=== PATIENT | female | born 1960 | race Two or more races ===

== ENCOUNTER 2021-09-10 08:23 | Outpatient (REF) | payer OTHER, SELFPAY ==
[2021-09-10 10:27] LABS: Basophils Absolute Auto 0.1 X10*3/uL (0.0-0.2); Basophils Percent Auto 0.5 % (0-2); Eosinophils Absolute Auto 0.2 X10*3/uL (0.0-0.4); Eosinophils Percent Auto 1.4 % (0-4); Hematocrit 42.8 % (37.0-47.0); Hemoglobin 14.3 g/dl (12.0-16.0); Imm Gran Abs Auto 0.05 X10*3/uL (0.00-0.03); Imm Gran Pct Auto 0.4 % (0.0-0.4); Lymphocytes Absolute Auto 2.4 X10*3/uL (1.2-4.9); Lymphocytes Percent Auto 20.2 % (20-40); MANUAL DIFF FLAG NO; Mean Corpuscular HGB Conc 33.4 g/dl (31.0-35.0); Mean Corpuscular Hemoglobin 29.8 pg (27.0-33.0); Mean Corpuscular Volume 89.2 fL (80.0-98.0); Mean Platelet Volume 9.8 fL (9.4-12.3); Monocytes Absolute Auto 0.7 X10*3/uL (0.1-1.2); Monocytes Percent Auto 5.4 % (2-11); Neutrophils Absolute Auto 8.6 x10*3/uL (2.0-8.3); Neutrophils Percent Auto 72.1 % (45-73); Platelet Count 453 X10*3/uL (160-400); Red Cell Distribution Width 12.3 % (11.0-16.0)
[2021-09-10 10:58] LABS: Alanine Aminotransferase 46 U/L (0-31); Albumin Level 4.2 g/dL (3.5-5.0); Alkaline Phosphatase 118 U/L (39-117); Anion Gap 14 (12-20); Aspartate Amino Transferase 26 U/L (5-31); Bilirubin Total 0.8 mg/dL (0.0-1.0); Blood Urea Nitrogen 13 mg/dL (9-16); Calcium 9.8 mg/dL (8.4-10.2); Carbon Dioxide 27 mmol/L (22-29); Chloride 108 mmol/L (96-108); Cholesterol 197 mg/dL; Estimated Glomerular Filt Rate > 60; Glucose Fasting 109 mg/dL (60-99); HDL Cholesterol 45 mg/dL; LDL Cholesterol Calculated 122 mg/dl; Potassium 4.6 mmol/L (3.3-5.1); Sodium 144 mmol/L (135-145); Total Protein 6.9 g/dL (6.5-8.0); Triglycerides 150 mg/dL
[2021-09-10 11:19] LABS: HBc Num1 0.07 S/CO (0.00-0.79); Hepatitis B Core Antibody Nonreactive (Nonreactive); Thyroid Stimulating Hormone 1.25 uIU/mL (0.32-4.0); ~HepC Num1 0.19 S/CO (0.00-0.79); ~Hepatitis C Antibody Nonreactive (Nonreactive)
[2021-09-10 11:23] LABS: HBsAGNum1 0.17 S/CO (0.00-0.99); Hepatitis B Surface Antigen Negative (Negative); ~Hepatitis A Antibody IgM Nonreactive (Nonreactive); ~Hepatitis B Surface Antibody REACTIVE (Nonreactive)
== END 2021-09-10 08:24 | disposition home or self-care (01) ==
LOC: HO.10HDL 08:23
PROVIDERS: Visit Provider Internal Medicine
DX: Z00.01 Encounter for general adult medical examination with abnormal findings (principal); F32.9 Major depressive disorder, single episode, unspecified; L40.8 Other psoriasis; R74.01 Elevation of levels of liver transaminase levels
CPT/HCPCS: 36415; 80053; 80061; 84443; 85025; 86704; 86706; 86709; 86803; 87340

== ENCOUNTER 2021-09-25 | Outpatient (REF) | payer OTHER, SELFPAY ==
--- NOTE | ~2021-09-25 | MM_ITS ---
EXAMINATION: MM SCREENING DIGITAL BREAST TOMOSYNTHESIS, BILATERAL CLINICAL INFORMATION: Screening. Asymptomatic. The lifetime risk of breast cancer based on the Tyrer-Cuzick Model is 5.1%. COMPARISON: Mammography: September 07, 2018 and November 08, 2009 TECHNIQUE: Digital breast tomosynthesis is performed in both the craniocaudal and mediolateral oblique views along with computer-aided detection (CAD). Synthesized 2D images are generated from the tomosynthesis. FINDINGS: There are scattered areas of fibroglandular density (ACR BI-RADS breast composition Category b). There are no significant masses, abnormal calcifications, or other abnormalities. MM/MM tomosynthesis screening BI IMPRESSION: There are no significant changes from prior study. ASSESSMENT: BI-RADS 1: Negative RECOMMENDATION: Routine annual mammography screening. This patient's information was entered into a reminder system with a target due date for their next mammogram.
== END 2021-09-25 14:32 ==
LOC: HO.MAMMO
PROVIDERS: PCP Internal Medicine; Visit Provider Internal Medicine
DX: Z12.31 Encounter for screening mammogram for malignant neoplasm of breast (principal)
CPT/HCPCS: 77063; 77067

== ENCOUNTER 2022-03-24 12:32 | Outpatient (REF) | payer OTHER, SELFPAY ==
--- NOTE | ~2022-03-24 | XR_ITS ---
EXAMINATION: XR HAND, RIGHT CLINICAL INFORMATION: Pain. COMPARISON: None TECHNIQUE: PA, lateral, and oblique views of the right hand. FINDINGS: The bones and soft tissues are normal. No fracture. Alignment is anatomic. Joint spaces are maintained. No erosions or soft tissue calcifications. XR/XR hand RT min 3V IMPRESSION: Unremarkable right hand exam
== END 2022-03-24 12:33 | disposition home or self-care (01) ==
LOC: HO.HOSX 12:32
PROVIDERS: Visit Provider Physician Assistant
DX: M79.641 Pain in right hand (principal); M67.431 Ganglion, right wrist
CPT/HCPCS: 73130; 99202

== ENCOUNTER 2022-04-06 16:19 | Outpatient (REF) | payer OTHER, SELFPAY ==
--- NOTE | ~2022-04-06 | MR_ITS ---
EXAMINATION: MR WRIST WITHOUT AND WITH CONTRAST, RIGHT CLINICAL INFORMATION: Ganglion on right wrist. COMPARISON: X-ray of the right hand February 2022. TECHNIQUE: MRI of the right wrist is performed before and after contrast. Contrast dose 7.5 mL of Gadavist given intravenously. A skin marker was placed in the area of presumed palpable abnormality along the volar aspect of the wrist. FINDINGS: There is a lipomatous mass juxtaposed between the flexor carpi ulnaris tendon and the 4th and 5th flexor digitorum profundus tendons. The mass begins proximal to the ulnocarpal joint and extends just distal to it. See sagittal image 10 series 4. The mass also abuts or nearly abuts the ulnar nerve and artery. The signal characteristics of the mass are identical to that of the lipomatous subcutaneous soft tissues. There is no enhancement. The mass measures up to 13 mm transverse up to 6 mm AP and 22 mm craniocaudal. Triangular Fibrocartilage Complex: There is a small central 1 mm defect at the level of the radial attachment of the triangular fibrocartilage. Intraosseous ligaments normal. Bone/Cartilage: Small ganglion cyst versus synovial recess measuring 2 mm adjacent to the radial aspect of the triscaphoid joint. Minimal subchondral cystic change in of the lunate deep to the cartilage at the ulnocarpal articulation. Cartilage appears grossly intact. Subcutaneous Soft Tissues: Normal. Remaining neurovascular structures unremarkable. MR/MR wrist RT wo/w con IMPRESSION: Lipomatous mass volar ulnar aspect of the wrist centered at the level of the ulnocarpal articulation. The mass most likely reflects a lipoma. However, Clinical factors are necessary to exclude the remote possibility of malignancy. Small central defect/tear of the triangular fibrocartilage. Focal arthrosis of the ulnocarpal articulation. Small synovial recess or ganglion cyst abutting the radial aspect of the triscaphoid joint.
== END 2022-04-06 16:20 | disposition home or self-care (01) ==
LOC: HO.MRI 16:19
PROVIDERS: Visit Provider Physician Assistant
DX: M67.431 Ganglion, right wrist (principal)
CPT/HCPCS: 73223; A9585

== ENCOUNTER 2022-07-02 11:45 | Outpatient (REF) | payer OTHER, SELFPAY ==
--- NOTE | 2022-07-02 09:30 | EMG_ITS ---
Right median and ulnar motor and sensory studies were performed. Right radial and sensory study was performed and paraspinal muscles were tested. IMPRESSION: Mild to moderate right median neuropathy across carpal tunnel. MD NIELS Nesbitt/AJ / [id number]
== END 2022-07-02 11:46 | disposition home or self-care (01) ==
LOC: HO.NEURO 11:45
PROVIDERS: Visit Provider Physician Assistant
DX: R20.0 Anesthesia of skin (principal); R20.2 Paresthesia of skin
CPT/HCPCS: 95886; 95909

== ENCOUNTER 2022-09-29 12:48 | Outpatient (REF) | payer OTHER, SELFPAY ==
--- NOTE | ~2022-09-29 | MM_ITS ---
EXAMINATION: MM SCREENING DIGITAL BREAST TOMOSYNTHESIS, BILATERAL CLINICAL INFORMATION: Screening. Asymptomatic. The lifetime risk of breast cancer based on the Tyrer-Cuzick Model is 5%. COMPARISON: Mammography: 09/25/2021; outside mammography 09/07/2018 and 11/08/2009 ([facility] [place]) TECHNIQUE: Digital breast tomosynthesis is performed in both the craniocaudal and mediolateral oblique views along with computer-aided detection (CAD). Synthesized 2D images are generated from the tomosynthesis. FINDINGS: There are scattered areas of fibroglandular density (ACR BI-RADS breast composition Category b). There are no significant masses, abnormal calcifications, or other abnormalities. Parenchymal pattern is similar to prior studies. There is no developing density or architectural abnormality. The axilla and skin contours are unremarkable. No significant changes. MM/MM tomosynthesis screening BI IMPRESSION: No mammographic evidence of malignancy. ASSESSMENT: BI-RADS 1: Negative RECOMMENDATION: Routine annual mammography screening. This patient's information was entered into a reminder system with a target due date for their next mammogram.
== END 2022-09-29 12:49 | disposition home or self-care (01) ==
LOC: HO.MAMMO 12:48
PROVIDERS: PCP Internal Medicine; Visit Provider Internal Medicine
DX: Z12.31 Encounter for screening mammogram for malignant neoplasm of breast (principal)
CPT/HCPCS: 77063; 77067

== ENCOUNTER 2023-10-05 08:36 | Outpatient (REF) | payer OTHER, SELFPAY | END 2023-10-05 08:37 | disposition home or self-care (01) | LOC: HO.MAMMO 08:36 | PROVIDERS: PCP Internal Medicine; Visit Provider Internal Medicine | DX: Z12.31 Encounter for screening mammogram for malignant neoplasm of breast (principal) | CPT/HCPCS: 77063; 77067 ==

== ENCOUNTER → 2023-10-05 08:45 | Outpatient (BNV) | payer OTHER, SELFPAY | PROVIDERS: PCP Internal Medicine; Visit Provider Radiology Diagnostic Radiology | DX: Z12.31 Encounter for screening mammogram for malignant neoplasm of breast (principal) | CPT/HCPCS: 77063; 77067 ==

== ENCOUNTER 2024-12-01 16:12 | Outpatient (REF) | payer OTHER, SELFPAY ==
--- OUTSIDE RECORDS SUMMARY | 2024-12-01 17:00 | XMS_ITS | Clinical Summary ---
Author Organization [employer] Address [address] [place] [address] [address] [place] [address] Care Team Providers Care Manager Of Employee Relations Name Role Phone Unavailable Primary Care Provider Unavailabl e Allergies No known active allergies Medications No known medications Social History Tobacco Use Types Packs/Day Years Used Date Smoking Tobacco: Never Passive Smoke Exposure: Never Smokeless Tobacco: Never Tobacco Cessation:Counseling Given: Not Answered Alcohol Use Standard Drinks/Week Comments Never 0 (1 standard drink = 0.6 oz pur e alcohol) Comments Unknown Sex and Gender Information Value Date Recorded Sex Assigned at Female 06/29/2022 10:22 AM EDT Legal Sex Female 10:22 AM EDT Gender Identity Female 06/29/2022 10:22 AM EDT Sexual Orientation Choose not to disclose 2021 10:22 AM EDT Last Filed Vital Signs Vital Sign Reading Time Taken Comments Blood Pressure 118/74 09/04/2022 9:08 AM EST Pulse 68 09/04/2022 9:08 AM EST Temperature - - Respiratory Rate - - Oxygen Saturation - - Inhaled Oxygen Concentration - - Weight - - Height - - Body Mass Index - - Plan of Treatment Health Maintenance Due Date Last Done Comments CT Colonography 1962 Colonoscopy 1962 Colorectal Cancer Screening 1962 Dental X-Ray: Full Mouth 1962 Depression Screening 1962 FIT DNA/Cologuard 1962 FIT 1962 FOBT 1962 HIV Screening 1962 Lipid Panel 1962 SDOH Screening 1962 Sigmoidoscopy 1962 Alcohol/Substance Use Screening 1974 Hepatitis C Screening 1980 Pap Smear 1983 Cervical Cancer Screening 1992 HPV/Cotest 1992 Mammogram 2002 Pneumococcal Vaccine: 50+ Years (2 of 2 - PCV) 2012 08/20/2011 Zoster Vaccines (1 of 2) 2012 DTaP/Tdap/Td Vaccines (2 - Td or Tdap) 10/19/2022 10/19/2012 Dental Oral Exam 03/05/2023 09/04/2022 Dental Prophylaxis 03/05/2023 09/04/2022 Tobacco Screening 09/04/2023 09/04/2022 Dental X-Ray: Bitewings 09/05/2023 09/04/2022 COVID-19 Vaccine ( season) 2024 Influenza Vaccine (#1) 2024 7, 09/02/2015, 07/10/2014, Additional history exists RSV Patients and Patients Aged 60 years or older (1 - 1-dose 75+ series) 2037 Hepatitis B Vaccines Completed 01/25/2014, 09/25/2013, 07/12/2013 HIB Vaccines Aged Out No longer eligi ble based on patient's age to complete this topic HPV Vaccines Aged Out No longer eligi ble based on patient's age to complete this topic Hepatitis A Vaccines Aged Out No long er eligible based on patient's age to complete this topic IPV Vaccines Aged Out No longer eligi ble based on patient's age to complete this topic Meningococcal Vaccine Aged Out No dayanara adam eligible based on patient's age to complete this topic RSV under 20 months Aged Out No longe r eligible based on patient's age to complete this topic Rotavirus Vaccines Aged Out No longer eligible based on patient's age to complete this topic Procedures Procedure Name Priority Date/Time Associated Diagnosis Comments PERIODIC ORAL EVALUATION - ESTABLISHED PATIENT Routine 09/04/2022 3:00 PM EST PROPHYLAXIS - ADULT Routine 09/04/2022 9 :00 AM EST BITEWINGS - 4 RADIOGRAPHIC IMAGES Routine 09/04/2022 9:00 AM EST from Last 3 Months or Most Recently Relevant to Health Maintenance Insurance [facility]
--- OUTSIDE RECORDS SUMMARY | 2024-12-01 17:01 | XMS_ITS | Encounter Summary ---
Author Organization [employer] Address [address] [place] [address] [address] [place] [address] Care Team Providers Care Hog Cooler Name Role Phone Unavailable Primary Care Provider Unavailabl e Encounter Details Date Type Department Care Team (Latest Contact Info) Description 04/17/2019 Abstract [facility]VERSION[facility] Dental, Provider, DDS Social History Tobacco Use Types Packs/Day Years Used Date Smoking Tobacco: Never Assessed Comments Unknown Sex and Gender Information Value Date Recorded Sex Assigned at Female 06/29/2022 10:22 AM EDT Legal Sex Female 10:22 AM EDT Gender Identity Female 06/29/2022 10:22 AM EDT Sexual Orientation Choose not to disclose 2021 10:22 AM EDT documented as of this encounter Plan of Treatment Not on file documented as of this encounter Visit Diagnoses Not on filedocumented in this encounter
--- OUTSIDE RECORDS SUMMARY | 2024-12-01 17:01 | XMS_ITS | Encounter Summary ---
Author Organization [employer] Address [address] [place] [address] [address] [place] [address] Care Team Providers Care Softlines Supervisor Name Role Phone Unavailable Primary Care Provider Unavailabl e Reason for Visit * Reason Onset Date Comments returning call 03/25/2023 Encounter Details Date Type Department Care Team (Late st Contact Info) Description 03/25/2023 Telephone [facility] [address] [place] [address] Chandrakant Bonner DDS [address] [place] [address] returning call Social History Tobacco Use Types Packs/Day Years Used Date Smoking Tobacco: Never Passive Smoke Exposure: Never Smokeless Tobacco: Never Alcohol Use Standard Drinks/Week Comments Never 0 (1 standard drink = 0.6 oz pur e alcohol) Comments Unknown Sex and Gender Information Value Date Recorded Sex Assigned at Female 06/29/2022 10:22 AM EDT Legal Sex Female 10:22 AM EDT Gender Identity Female 06/29/2022 10:22 AM EDT Sexual Orientation Choose not to disclose 2021 10:22 AM EDT documented as of this encounter Miscellaneous Notes * Telephone Encounter - Sarah Doe - 03/25/2023 12:39 PM EDT Patient states she missed a call from [facility] dental. Pls return call to patient documented in this encounter Plan of Treatment Not on file documented as of this encounter Visit Diagnoses Not on filedocumented in this encounter
== END 2024-12-01 16:13 | disposition home or self-care (01) ==
LOC: HO.MAMMO 16:12
PROVIDERS: PCP Internal Medicine; Visit Provider Internal Medicine
DX: Z12.31 Encounter for screening mammogram for malignant neoplasm of breast (principal)
CPT/HCPCS: 77063; 77067

== ENCOUNTER → 2024-12-01 16:30 | Outpatient (BNV) | payer OTHER, SELFPAY | PROVIDERS: PCP Internal Medicine; Visit Provider Internal Medicine | DX: Z12.31 Encounter for screening mammogram for malignant neoplasm of breast (principal) | CPT/HCPCS: 77063; 77067 ==